=== PATIENT | male | born 1970 | race Caucasian/White ===

== ENCOUNTER 2017-09-15 23:25 | Emergency (ER) | payer OTHER ==
[2017-09-16] MEDS: SOD CHLORIDE 0.9% 1,000 ML IV (00:54)
[2017-09-16] MEDS: KETOROLAC 30 MG INJ IV (00:54)
[2017-09-16 01:29] LABS: ADD MAN DIFF? NO
[2017-09-16 01:35] LABS: BASOPHILS % 0.1 % (0.0-2.0); EOSINOPHILS # 0.1 10^3/ul (0.0-0.5); EOSINOPHILS % 0.4 % (0.0-7.0); HEMATOCRIT 42.4 % (42.0-52.0); HEMOGLOBIN 13.9 g/dl (14.0-18.0); LYMPHOCYTES # 1.8 10^3/ul (0.8-2.9); LYMPHOCYTES % 13.2 % (15.0-51.0); MEAN CORPUSCULAR HEMOGLOBIN 28.2 pg (29.0-33.0); MEAN CORPUSCULAR HGB CONC 32.8 g/dl (32.0-37.0); MEAN PLATELET VOLUME 10.8 fl (7.4-10.4); MONOCYTE # 1.5 10^3/ul (0.3-0.9); MONOCYTES % 10.7 % (0.0-11.0); NEUTROPHIL # 10.3 10^3/ul (1.6-7.5); NEUTROPHILS % 75.2 % (39.0-77.0); PLATELET COUNT 376 10^3/UL (140-415); RED BLOOD COUNT 4.93 10^6/ul (4.70-6.10); RED CELL DISTRIBUTION WIDTH 14.6 % (11.5-14.5)
[2017-09-16 01:35] LABS: WHITE BLOOD COUNT 13.7 10^3/ul (4.8-10.8)
[2017-09-16 01:55] LABS: ALANINE AMINOTRANSFERASE 37 IU/L (13-69); ALBUMIN 4.1 g/dl (3.3-4.9); ALKALINE PHOSPHATASE 127 IU/L (42-121); ANION GAP 15 (8-16); ASPARTATE AMINO TRANSFERASE 24 IU/L (15-46); BILIRUBIN,INDIRECT 0.5 mg/dl (0-1.1); BILIRUBIN,TOTAL 0.5 mg/dl (0.2-1.3); BLOOD UREA NITROGEN 7 mg/dl (7-20); CALCIUM 8.8 mg/dl (8.4-10.2); CARBON DIOXIDE 26 mmol/L (21-31); CHLORIDE 103 mmol/L (97-110); CREATININE 0.85 mg/dl (0.61-1.24); GLUCOSE 98 mg/dl (70-220); SODIUM 141 mmol/L (135-144); TOTAL PROTEIN 7.5 g/dl (6.1-8.1)
[2017-09-16 01:56] LABS: URIC ACID 4.7 mg/dl (3.1-7.9)
[2017-09-16 02:14] LABS: C-REACTIVE PROTEIN 3.9 mg/dl (0.0-0.9)
[2017-09-16 03:42] LABS: ERYTHROCYTE SEDIMENTATION RATE 28 mm/Hr (0-15)
[2017-09-16 04:27] LABS: SYN FLD WBC 26722 /cmm (0-150)
[2017-09-16 04:30] LABS: SYN FLD CLARITY BLOODY
[2017-09-16 04:32] LABS: SYN FLD SOURCE RIGHT ELBOW
[2017-09-16 04:48] LABS: SYN FLD MN % 1.2 &
[2017-09-16 04:49] LABS: SYN FLD PMN % 98.8 % (0.0-25.0)
[2017-09-16] MEDS: CLINDAMYCIN 600 MG/D5W (PMX) 50 ML IVPB (05:45)
[2017-09-16] MEDS: CLINDAMYCIN 300 MG INJ IM (06:13)
[2017-09-16 06:14] LABS: SYN FLD CRYSTALS NO CRYSTALS SEEN (None seen)
[2017-09-16 06:18] LABS: SYN FLD COLOR RED
== END 2017-09-16 06:39 | disposition home or self-care (01) ==
LOC: FTE 23:25
DX: M70.21 Olecranon bursitis, right elbow (principal); Y93.9 Activity, unspecified
CPT/HCPCS: 36415; 73080; 73080-RT; 80053; 84560; 85025; 85651; 86140; 89060; 96372; 96374; 96375; 99284-25

== ENCOUNTER 2018-11-21 01:53 | Inpatient (IN) | payer OTHER ==
[2018-11-21] MEDS ORDERED: NACL 0.9% 3 ML SYG IV (04:00)
[2018-11-21] MEDS ORDERED: ACETAMINOPHEN 325 MG TAB PO (04:00)
[2018-11-21] MEDS ORDERED: HYDROCODONE/APAP (5/325) TAB PO ×2 (04:00)
[2018-11-21] MEDS: PANTOPRAZOLE (EC) 40 MG TAB PO (05:32)
[2018-11-21 06:18] LABS: ADD MAN DIFF? NO
[2018-11-21 06:27] LABS: BASOPHILS % 0.3 % (0.0-2.0); EOSINOPHILS # 0.1 10^3/ul (0.0-0.5); EOSINOPHILS % 0.6 % (0.0-7.0); HEMATOCRIT 48.7 % (42.0-52.0); HEMOGLOBIN 15.1 g/dl (14.0-18.0); LYMPHOCYTES # 1.6 10^3/ul (0.8-2.9); LYMPHOCYTES % 19.4 % (15.0-51.0); MEAN CORPUSCULAR HEMOGLOBIN 28.3 pg (29.0-33.0); MEAN CORPUSCULAR VOLUME 91.4 fl (82.0-101.0); MEAN PLATELET VOLUME 9.8 fl (7.4-10.4); MONOCYTE # 0.7 10^3/ul (0.3-0.9); MONOCYTES % 8.4 % (0.0-11.0); NEUTROPHIL # 5.7 10^3/ul (1.6-7.5); PLATELET COUNT 324 10^3/UL (140-415); RED BLOOD COUNT 5.33 10^6/ul (4.70-6.10); RED CELL DISTRIBUTION WIDTH 14.2 % (11.5-14.5)
[2018-11-21 06:40] LABS: HEMOGLOBIN A1C 5.8 % (0-5.9)
[2018-11-21 07:09] LABS: ALANINE AMINOTRANSFERASE 60 IU/L (13-69); ALBUMIN 3.9 g/dl (3.3-4.9); ALBUMIN/GLOBULIN RATIO 1.11; ALKALINE PHOSPHATASE 135 IU/L (42-121); ANION GAP 7 (5-13); ASPARTATE AMINO TRANSFERASE 40 IU/L (15-46); BILIRUBIN,INDIRECT 0.4 mg/dl (0-1.1); BILIRUBIN,TOTAL 0.4 mg/dl (0.2-1.3); BLOOD UREA NITROGEN 17 mg/dl (7-20); CALCIUM 9.1 mg/dl (8.4-10.2); CARBON DIOXIDE 27 mmol/L (21-31); CHLORIDE 104 mmol/L (97-110); CHOL/HDL RATIO 3.8 RATIO; CHOLESTEROL 148 mg/dl (100-200); Estimated GFR > 60 mL/min (>60); GLUCOSE 87 mg/dl (70-220); HDL CHOLESTEROL 38 mg/dl (28-71); LDL CHOLESTEROL,CALCULATED 76 mg/dl; MAGNESIUM 2.5 mg/dl (1.7-2.5); PHOSPHORUS 4.2 mg/dl (2.5-4.9); POTASSIUM 4.4 mmol/L (3.5-5.1); SODIUM 138 mmol/L (135-144); TOTAL PROTEIN 7.4 g/dl (6.1-8.1); TRIGLYCERIDES 170 mg/dl (0-149)
[2018-11-21] MEDS: KETOROLAC 15 MG INJ IV (12:58)
[2018-11-21] MEDS: ONDANSETRON 4 MG INJ IV (12:58)
[2018-11-21] MEDS: BUPROPION 75 MG TAB PO ×2 (12:59→20:55)
[2018-11-22] MEDS: PANTOPRAZOLE (EC) 40 MG TAB PO ×2 (05:46→18:47)
[2018-11-22 06:25] LABS: ADD MAN DIFF? NO
[2018-11-22 06:35] LABS: BASOPHILS % 0.4 % (0.0-2.0); EOSINOPHILS # 0.1 10^3/ul (0.0-0.5); EOSINOPHILS % 0.9 % (0.0-7.0); HEMATOCRIT 47.2 % (42.0-52.0); HEMOGLOBIN 14.8 g/dl (14.0-18.0); LYMPHOCYTES # 1.8 10^3/ul (0.8-2.9); LYMPHOCYTES % 19.4 % (15.0-51.0); MEAN CORPUSCULAR HEMOGLOBIN 28.3 pg (29.0-33.0); MEAN CORPUSCULAR HGB CONC 31.4 g/dl (32.0-37.0); MEAN CORPUSCULAR VOLUME 90.2 fl (82.0-101.0); MEAN PLATELET VOLUME 9.8 fl (7.4-10.4); MONOCYTE # 0.8 10^3/ul (0.3-0.9); NEUTROPHIL # 6.4 10^3/ul (1.6-7.5); PLATELET COUNT 325 10^3/UL (140-415); RED BLOOD COUNT 5.23 10^6/ul (4.70-6.10); RED CELL DISTRIBUTION WIDTH 14.1 % (11.5-14.5)
[2018-11-22 06:35] LABS: WHITE BLOOD COUNT 9.1 10^3/ul (4.8-10.8)
[2018-11-22 06:54] LABS: INR 0.84; PROTIME 11.6 Sec (11.9-14.9); PT RATIO 0.9
[2018-11-22 06:55] LABS: ANION GAP 8 (5-13); BLOOD UREA NITROGEN 17 mg/dl (7-20); CALCIUM 9.2 mg/dl (8.4-10.2); CARBON DIOXIDE 27 mmol/L (21-31); CHLORIDE 103 mmol/L (97-110); CREATININE 1.03 mg/dl (0.61-1.24); Estimated GFR > 60 mL/min (>60); GLUCOSE 103 mg/dl (70-220); MAGNESIUM 2.3 mg/dl (1.7-2.5); PHOSPHORUS 4.5 mg/dl (2.5-4.9); POTASSIUM 4.5 mmol/L (3.5-5.1); SODIUM 138 mmol/L (135-144)
[2018-11-22 07:02] LABS: LIPASE 202 U/L (23-300)
[2018-11-22 07:28] LABS: HEPATITIS B SURFACE ANTIGEN NEGATIVE (NEGATIVE)
[2018-11-22 07:45] LABS: HEPATITIS B SURFACE ANTIBODY NEGATIVE (NEGATIVE)
[2018-11-22 07:46] LABS: HEPATITIS B CORE ANTIBODY NEGATIVE (NEGATIVE); HEPATITIS C VIRAL ANTIBODY NEGATIVE (NEGATIVE)
[2018-11-22] MEDS: BUPROPION 75 MG TAB PO ×2 (09:02→21:54)
[2018-11-22] MEDS: KETOROLAC 15 MG INJ IV ×2 (12:34→21:55)
[2018-11-22] MEDS: SUCRALFATE (100 MG/ML) 10ML CUP PO ×3 (12:34→21:54)
[2018-11-23] MEDS ORDERED: ZOLPIDEM 5 MG TAB PO (00:30)
[2018-11-23] MEDS: PANTOPRAZOLE (EC) 40 MG TAB PO ×2 (06:36→17:40)
[2018-11-23] MEDS: SUCRALFATE (100 MG/ML) 10ML CUP PO ×4 (08:50→21:38)
[2018-11-23] MEDS: BUPROPION 75 MG TAB PO ×2 (08:50→21:38)
[2018-11-23 10:26] LABS: ADD MAN DIFF? NO
[2018-11-23 10:30] LABS: WHITE BLOOD COUNT 8.2 10^3/ul (4.8-10.8)
[2018-11-23 10:30] LABS: BASOPHILS % 0.2 % (0.0-2.0); EOSINOPHILS # 0.1 10^3/ul (0.0-0.5); EOSINOPHILS % 1.1 % (0.0-7.0); HEMATOCRIT 45.7 % (42.0-52.0); HEMOGLOBIN 14.4 g/dl (14.0-18.0); LYMPHOCYTES # 1.4 10^3/ul (0.8-2.9); LYMPHOCYTES % 16.9 % (15.0-51.0); MEAN CORPUSCULAR HEMOGLOBIN 28.4 pg (29.0-33.0); MEAN CORPUSCULAR HGB CONC 31.5 g/dl (32.0-37.0); MEAN CORPUSCULAR VOLUME 90.1 fl (82.0-101.0); MEAN PLATELET VOLUME 9.7 fl (7.4-10.4); MONOCYTE # 0.8 10^3/ul (0.3-0.9); MONOCYTES % 9.8 % (0.0-11.0); NEUTROPHIL # 5.8 10^3/ul (1.6-7.5); NEUTROPHILS % 71.8 % (39.0-77.0); PLATELET COUNT 319 10^3/UL (140-415); RED BLOOD COUNT 5.07 10^6/ul (4.70-6.10); RED CELL DISTRIBUTION WIDTH 14.1 % (11.5-14.5)
[2018-11-23 10:51] LABS: ALANINE AMINOTRANSFERASE 54 IU/L (13-69); ALBUMIN 3.9 g/dl (3.3-4.9); ALBUMIN/GLOBULIN RATIO 1.18; ALKALINE PHOSPHATASE 106 IU/L (42-121); ANION GAP 8 (5-13); ASPARTATE AMINO TRANSFERASE 35 IU/L (15-46); BILIRUBIN,INDIRECT 0.3 mg/dl (0-1.1); BILIRUBIN,TOTAL 0.3 mg/dl (0.2-1.3); BLOOD UREA NITROGEN 21 mg/dl (7-20); CALCIUM 9.3 mg/dl (8.4-10.2); CARBON DIOXIDE 27 mmol/L (21-31); CHLORIDE 104 mmol/L (97-110); CREATININE 1.05 mg/dl (0.61-1.24); Estimated GFR > 60 mL/min (>60); GLUCOSE 101 mg/dl (70-220); POTASSIUM 4.2 mmol/L (3.5-5.1); SODIUM 139 mmol/L (135-144); TOTAL PROTEIN 7.2 g/dl (6.1-8.1)
[2018-11-23 11:00] LABS: LIPASE 197 U/L (23-300)
[2018-11-23 11:56] LABS: MITOCHONDRIAL TB NEGATIVE (NEGATIVE); SMOOTH MUSCLE AB SCREEN NEGATIVE (NEGATIVE)
[2018-11-23 14:21] LABS: ANA SCREEN NEGATIVE (NEGATIVE)
[2018-11-23] MEDS: KETOROLAC 15 MG INJ IV (21:38)
[2018-11-24] MEDS: PANTOPRAZOLE (EC) 40 MG TAB PO (06:00)
[2018-11-24] MEDS: BUPROPION 75 MG TAB PO (08:43)
[2018-11-24] MEDS: SUCRALFATE (100 MG/ML) 10ML CUP PO ×2 (08:43→13:30)
== END 2018-11-24 14:05 | disposition home or self-care (01) | DRG 392 ==
LOC: 2NE 01:53
PROVIDERS: Internal Medicine
DX: A08.4 Viral intestinal infection, unspecified (principal); R10.12 Left upper quadrant pain; G80.9 Cerebral palsy, unspecified; F32.9 Major depressive disorder, single episode, unspecified; K76.0 Fatty (change of) liver, not elsewhere classified; F15.90 Other stimulant use, unspecified, uncomplicated; Z72.89 Other problems related to lifestyle; F41.9 Anxiety disorder, unspecified
CPT/HCPCS: 76700; 80048; 80053; 80061; 83036; 83690; 83735; 84100; 84443; 85025; 85610; 86038; 86255; 86704; 86706; 86709; 86803; 87340; 93306; 93970

== ENCOUNTER 2018-12-04 10:33 | Emergency (ER) | payer OTHER ==
[2018-12-04 15:30] LABS: ADD MAN DIFF? NO
[2018-12-04 15:33] LABS: WHITE BLOOD COUNT 8.4 10^3/ul (4.8-10.8)
[2018-12-04 15:33] LABS: BASOPHILS % 0.5 % (0.0-2.0); EOSINOPHILS # 0.2 10^3/ul (0.0-0.5); EOSINOPHILS % 1.8 % (0.0-7.0); HEMOGLOBIN 14.3 g/dl (14.0-18.0); LYMPHOCYTES # 1.5 10^3/ul (0.8-2.9); LYMPHOCYTES % 17.5 % (15.0-51.0); MEAN CORPUSCULAR HEMOGLOBIN 28.5 pg (29.0-33.0); MEAN CORPUSCULAR HGB CONC 31.8 g/dl (32.0-37.0); MEAN CORPUSCULAR VOLUME 89.8 fl (82.0-101.0); MEAN PLATELET VOLUME 9.9 fl (7.4-10.4); MONOCYTE # 0.8 10^3/ul (0.3-0.9); MONOCYTES % 9.7 % (0.0-11.0); NEUTROPHIL # 5.9 10^3/ul (1.6-7.5); NEUTROPHILS % 70.3 % (39.0-77.0); PLATELET COUNT 361 10^3/UL (140-415); RED BLOOD COUNT 5.01 10^6/ul (4.70-6.10); RED CELL DISTRIBUTION WIDTH 14.1 % (11.5-14.5)
[2018-12-04 15:50] LABS: ALANINE AMINOTRANSFERASE 64 IU/L (13-69); ALBUMIN/GLOBULIN RATIO 1.08; ALKALINE PHOSPHATASE 121 IU/L (42-121); ANION GAP 9 (5-13); ASPARTATE AMINO TRANSFERASE 33 IU/L (15-46); BILIRUBIN,INDIRECT 0.3 mg/dl (0-1.1); BILIRUBIN,TOTAL 0.3 mg/dl (0.2-1.3); BLOOD UREA NITROGEN 15 mg/dl (7-20); CALCIUM 9.3 mg/dl (8.4-10.2); CARBON DIOXIDE 25 mmol/L (21-31); CHLORIDE 107 mmol/L (97-110); CREATININE 1.04 mg/dl (0.61-1.24); Estimated GFR > 60 mL/min (>60); GLUCOSE 94 mg/dl (70-220); LIPASE 136 U/L (23-300); POTASSIUM 3.8 mmol/L (3.5-5.1); SODIUM 141 mmol/L (135-144); TOTAL PROTEIN 7.7 g/dl (6.1-8.1)
[2018-12-04 16:02] LABS: TROPONIN-I < 0.012 ng/ml (0.000-0.120)
[2018-12-04] MEDS: SOD CHLORIDE 0.9% 1,000 ML IV (17:27)
[2018-12-04] MEDS: SOD CHLORIDE 0.9% 100 ML (19:34)
[2018-12-04] MEDS: IOHEXOL 300MG/ML 150 ML BTL (19:34)
== END 2018-12-04 20:55 | disposition home or self-care (01) ==
LOC: E/R 10:33
DX: R10.12 Left upper quadrant pain (principal); Z87.891 Personal history of nicotine dependence
CPT/HCPCS: 36415; 74177; 76705; 80053; 83690; 84484; 85025; 93005; 99285-25